=== PATIENT | male | born 1960 | race Caucasian/White ===

== ENCOUNTER → 2019-03-28 | Outpatient (CLI) | payer OTHER | LOC: M.RAD 11:55 | DX: R68.84 Jaw pain (principal); Z88.0 Allergy status to penicillin ==

== ENCOUNTER → 2021-04-03 | Outpatient (CLI) | payer OTHER ==
[2021-04-03 17:34] LABS: ABSOLUTE EOSINOPHILS 0.2 thou/uL (0.0-0.7); ABSOLUTE LYMPHOCYTES 1.6 thou/uL (0.8-5.3); EOSINOPHILS 4.1 %; MPV 7.8 fl. (7.2-11.1); RBC 4.41 mil/uL (4.50-6.00)
[2021-04-03 17:36] LABS: ABSOLUTE BASOPHILS 0.1 thou/uL (0.0-0.2); ABSOLUTE MONOCYTES 0.5 thou/uL (0.0-1.2); ABSOLUTE NEUTROPHILS 2.2 thou/uL (1.6-8.1); BASOPHILS 1.8 %; HEMATOCRIT 39.1 % (42.0-52.0); HEMOGLOBIN 13.2 gm/dL (14.0-18.0); LYMPHOCYTES 33.9 %; MCHC 33.8 g/dL (28.0-37.0); MCV 88.7 fL (80.0-100.0); MONOCYTES 11.4 %; NUCLEATED RBCS 0 /100WBC; PLATELET COUNT* 186 thou/uL (150-400); POLYS 48.8 %; RDW-CV 12.8 % (10.5-14.5); WBC 4.6 thou/uL (4.0-11.0)
[2021-04-03 17:44] LABS: CALCIUM 9.1 mg/dL (8.5-10.1); CREATININE 1.1 mg/dL (0.6-1.3); POTASSIUM 4.2 mmol/L (3.5-5.1)
[2021-04-03 17:48] LABS: TOTAL BILIRUBIN 1.5 mg/dL (<0.1-1.0); TOTAL PROTEIN 7.8 g/dL (6.4-8.2)
== END ==
LOC: M.RAD 17:06
PROVIDERS: ATTEND Internal Medicine
DX: R07.9 Chest pain, unspecified (principal)